=== PATIENT | female | born 1985 | race Two or more races ===

== ENCOUNTER 2017-06-03 13:47 | Emergency (ER) | payer SELFPAY ==
[~2017-06-03] VITALS: Ht 157.5 cm; Wt 77.1 kg
[2017-06-03] MEDS ORDERED: ONDANSETRON PF 4 MG/2 ML VIAL. IV ONE (14:15)
[2017-06-03] MEDS ORDERED: LIDO:MAALOX:DONNATAL 1:1:1 15 ML SINGLE DOSE SWSW ONE (14:15)
[2017-06-03] MEDS ORDERED: HYOSCYAMINE 0.125 MG TAB.RAPDIS PO PRN (14:15)
[2017-06-03] MEDS ORDERED: IV NORMAL SALINE 1000ML BAG 1,000 ML IV ONE (14:15)
[2017-06-03] MEDS ORDERED: KETOROLAC 15 MG/ML VIAL. IV ONE (14:15)
[2017-06-03 14:46] LABS: BASO # 0.1 x10^3/uL (0.0-0.2); BASO % 0 % (0-3); EOS % 8 % (0-3); HEMATOCRIT 37.4 % (36.0-47.0); HEMOGLOBIN 12.8 g/dL (12.0-15.5); LYMPH # 2.6 x10^3/uL (1.0-4.8); LYMPH % 21 % (24-48); MEAN CORPUSCULAR HEMOGLOBIN 29 pg (25-35); MEAN CORPUSCULAR HGB CONC 34 g/dL (31-37); MEAN CORPUSCULAR VOLUME 84 fL (79-100); MONO % 5 % (0-9); NEUT % 66 % (31-73); PLATELET COUNT 125 x10^3/uL (140-400); RED BLOOD COUNT 4.46 x10^6/uL (3.50-5.40); RED CELL DISTRIBUTION WIDTH 13.8 % (11.5-14.5); WHITE BLOOD COUNT 12.3 x10^3/uL (4.0-11.0)
[2017-06-03 14:48] LABS: BILIRUBIN,URINE NEGATIVE (NEG); GLUCOSE,URINE NEGATIVE (NEG); NITRITE,URINE NEGATIVE (NEG); PH,URINE 6.5; PROTEIN,URINE 30 mg/dL (NEG-TRACE)
[2017-06-03 14:49] LABS: CALCIUM 8.4 mg/dL (8.5-10.1); CREATININE 0.6 mg/dL (0.6-1.0); GFR 114.4; POTASSIUM 3.5 mmol/L (3.5-5.1)
[2017-06-03 14:55] LABS: ALBUMIN 3.5 g/dL (3.4-5.0); ALBUMIN/GLOBULIN RATIO 0.9 (1.0-1.7); TOTAL BILIRUBIN 0.7 mg/dL (0.2-1.0); TOTAL PROTEIN 7.3 g/dL (6.4-8.2)
[2017-06-03 14:57] LABS: BACTERIA,URINE MODERATE /HPF (0-FEW); SQUAMOUS EPITHELIAL CELL,UR MOD /LPF
--- NOTE | 2017-06-03 16:16 | RAD ---
EXAM: Right upper quadrant ultrasound. HISTORY: Right upper quadrant pain. COMPARISON: None. FINDINGS: Sonographic evaluation of the right upper quadrant was performed. The liver appears normal in parenchymal echotexture. There are no focal lesions. A nodule laterally in focus along the gallbladder wall near the neck measures 9 x 8 mm. Doppler images of this lesion are not included. Another smaller polyp measures 3 mm. No shadowing stones are seen. There is no sonographic Hadley sign. The common duct measures 4 mm. The visualized portions of the head of the pancreas reveal no abnormality. The right kidney measures 12.8 cm. Cortical thickness and echogenicity are preserved. There is no hydronephrosis. The visualized portions of the abdominal aorta and inferior vena cava are grossly patent and normal in caliber. IMPRESSION: 1. Multiple gallbladder polyps measure up to 9 mm. No Doppler images of these lesions are included. Additional Doppler images are recommended to assess for vascularity. If they are avascular, follow-up is recommended. If vascular, surgical consultation could be useful.
--- NOTE | 2017-06-03 16:49 | PHYS DOC ---
Past Medical History Past Medical History: No Pertinent History Past Surgical History: No Surgical History Alcohol Use: None Drug Use: None Adult General Chief Complaint Chief Complaint: NAUSEA/VOMITING/DIARRHA HPI HPI Patient is a 32 year old female who is Italian-speaking with her daughter at bedside translating presents here today complaining of nausea and vomiting since yesterday morning. Patient denies any diarrhea fevers shakes or chills. Patient reports she's had abdominal discomfort greatest in the midepigastric and right upper quadrant area. Patient denies any dysuria frequency or urgency. Patient reports her last by mouth intake was 6 PM yesterday for solids. Patient reports her last by mouth intake of liquids was 9 the morning today. Patient reports that she was able keep down for several hours but then threw it up approximately 1-2 hours later. Patient denies any cough cold Raynaud's. Patient denies any vaginal discharge. Review of systems: Constitutional: Denies fever or chills Eyes: Denies change in visual acuity, redness, or eye pain HENT: Denies nasal congestion or sore throat Respiratory: Denies cough or shortness of breath All other systems were reviewed and found to be within normal limits, except as documented in this note. Physical exam: Constitutional: Well developed, well nourished, no acute distress, non-toxic appearance. HENT: Normocephalic, atraumatic, bilateral external ears normal, nose normal. Eyes: PERRLA, EOMI, conjunctiva normal, no discharge. Neck: Normal range of motion, no tenderness, supple, no stridor. Cardiovascular: Heart rate regular rhythm, Lungs & Thorax: Bilateral breath sounds clear to auscultation Abdomen: Soft nondistended no rebound or guarding. Patient with midepigastric tenderness greater than right upper quadrant. Patient has no right lower quadrant left lower quadrant tenderness to palpation. Patient has no suprapubic discomfort. Patient not present with signs or symptoms consistent with an acute surgical abdomen. Patient has no Hadley sign or tenderness over McBurney's point. Skin: Warm, dry, no erythema, no rash. Back: Normal spinal curvature Extremities: No tenderness, no cyanosis, no clubbing, ROM intact, no edema. Neurologic: Alert and oriented X 3, normal motor function Psychologic: Affect normal, judgement normal, mood normal. Ultrasound of right upper quadrant as per radiology reveals multiple gallbladder polyps measuring up to 9 mm there is no Doppler images of these lesions included. Additional Doppler images recommended to assess for vascularity. If they are avascular, follow-up is recommended. If vascular surgical consultation could be useful. Assessment and plan: 1. 32-year-old female who presents here today complaining of abdominal pain. Patient's ER workup is unremarkable only for polyps in her gallbladder. Patient' s repeat ultrasound to assess for vascularity revealed no significant vascularity noted in the polyps in her gallbladder. He is likely benign polyps however I have discussed with the daughter and the patient the need for her to follow-up with her primary care physician to have this repeated and monitored as an outpatient. Possibly be causing her discomfort may be calling episodes of cholelithiasis for the patient. Patient will be given referrals to see a primary care physician as well as the primary surgeon further evaluate her need for surgical intervention given her discomfort and right upper quadrant. At this time the pain is gone on for approximately 24-48 hours, she has not had this discomfort in the past, her pain currently as well controlled with analgesia that was given the ED and she reports she is now pain-free. Patient be discharged home with Levsin as well as Prilosec consistent with both gastritis and biliary colic/intestinal spasms. Patient is clinically hemodynamically stable without any need for further ER/inpatient evaluation. Current Medications Current Medications Current Medications Medications (Trade) Dose Ordered Sig/[facility] Start Time Stop Time Status Last Admin Dose Admin Hyoscyamine (Anaspaz) 0.125 mg PRN Q4HRS PRN 06/03/17 14:15 06/03/17 15:00 0.125 MG Ketorolac Tromethamine (Toradol) 15 mg 1X ONCE 06/03/17 14:15 06/03/17 14:19 DC 06/03/17 15:00 15 MG Multi-Ingredient Mouthwash/Gargle (Gi Cocktail Single Dose) 15 ml 1X ONCE 06/03/17 14:15 06/03/17 14:19 DC 06/03/17 15:00 15 ML Ondansetron HCl (Zofran) 4 mg 1X ONCE 06/03/17 14:15 06/03/17 14:19 DC 06/03/17 15:00 4 MG Sodium Chloride 1,000 ml @ 1,000 mls/hr 1X ONCE 06/03/17 14:15 06/03/17 15:14 DC 06/03/17 15:00 1,000 MLS/HR Allergies Allergies Allergies Coded Allergies Type Severity Reaction Last Updated Verified No Known Drug Allergies 06/03/17 No Current Patient Data Vital Signs Vital Signs Date Time Temp Pulse Resp B/P (MAP) Pulse Ox O2 Delivery O2 Flow Rate FiO2 06/03/17 16:13 56 18 112/72 (85) 99 Room Air 06/03/17 14:05 98.3 98.3 Lab Values Laboratory Tests Test 06/03/17 14:31 06/03/17 14:32 POC Urine HCG, Qualitative Hcg negative (Negative) White Blood Count 12.3 x10^3/uL (4.0-11.0) H Red Blood Count 4.46 x10^6/uL (3.50-5.40) Hemoglobin 12.8 g/dL (12.0-15.5) Hematocrit 37.4 % (36.0-47.0) Mean Corpuscular Volume 84 fL (79-100) Mean Corpuscular Hemoglobin 29 pg (25-35) Mean Corpuscular Hemoglobin Concent 34 g/dL (31-37) Red Cell Distribution Width 13.8 % (11.5-14.5) Platelet Count 125 x10^3/uL (140-400) L Neutrophils (%) (Auto) 66 % (31-73) Lymphocytes (%) (Auto) 21 % (24-48) L Monocytes (%) (Auto) 5 % (0-9) Eosinophils (%) (Auto) 8 % (0-3) H Basophils (%) (Auto) 0 % (0-3) Neutrophils # (Auto) 8.1 x10^3uL (1.8-7.7) H Lymphocytes # (Auto) 2.6 x10^3/uL (1.0-4.8) Monocytes # (Auto) 0.6 x10^3/uL (0.0-1.1) Eosinophils # (Auto) 0.9 x10^3/uL (0.0-0.7) H Basophils # (Auto) 0.1 x10^3/uL (0.0-0.2) Urine Color Jazmine Urine Clarity Cloudy Urine pH 6.5 Urine Specific [place] 1.025 Urine Protein 30 mg/dL (NEG-TRACE) Urine Glucose (UA) Negative mg/dL (NEG) Urine Ketones (Stick) >=80 mg/dL (NEG) Urine Blood Moderate (NEG) Urine Nitrite Negative (NEG) Urine Bilirubin Negative (NEG) Urine Urobilinogen Dipstick 1.0 mg/dL (0.2 mg/dL) Urine Leukocyte Esterase Moderate (NEG) Urine RBC 3-5 /HPF (0-2) Urine WBC 5-10 /HPF (0-4) Urine Squamous Epithelial Cells Mod /LPF Urine Bacteria Moderate /HPF (0-FEW) Urine Mucus Mod /LPF Sodium Level 139 mmol/L (136-145) Potassium Level 3.5 mmol/L (3.5-5.1) Chloride Level 106 mmol/L (98-107) Carbon Dioxide Level 29 mmol/L (21-32) Anion Gap 4 (6-14) L Blood Urea Nitrogen 9 mg/dL (7-20) Creatinine 0.6 mg/dL (0.6-1.0) Estimated GFR (Cockcroft-Gault) 114.4 BUN/Creatinine Ratio 15 (6-20) Glucose Level 90 mg/dL (70-99) Calcium Level 8.4 mg/dL (8.5-10.1) L Total Bilirubin 0.7 mg/dL (0.2-1.0) Aspartate Amino Transferase (AST) 13 U/L (15-37) L Alanine Aminotransferase (ALT) 18 U/L (14-59) Alkaline Phosphatase 62 U/L (46-116) Total Protein 7.3 g/dL (6.4-8.2) Albumin 3.5 g/dL (3.4-5.0) Albumin/Globulin Ratio 0.9 (1.0-1.7) L Lipase 54 U/L (73-393) L Laboratory Tests 06/03/17 14:32 Laboratory Tests 06/03/17 14:32 EKG EKG [] Radiology/Procedures Radiology/Procedures [] Course & Med Decision Making Course & Med Decision Making Pertinent Labs and Imaging studies reviewed. (See chart for details) [] Dragon Disclaimer Dragon Disclaimer This electronic medical record was generated, in whole or in part, using a voice recognition dictation system. Departure Departure Impression: Primary Impression: Gallbladder polyp Additional Impressions: Biliary colic Abdominal pain Disposition: HOME, SELF-CARE Condition: IMPROVED Referrals: NO PCP (PCP) Patient Instructions: Abdominal Pain (Nonspecific), Biliary Colic Scripts Omeprazole Magnesium (PRILOSEC OTC) 20 Mg Tablet.dr 1 TAB PO DAILY, #30 TAB 3 Refills Prov: EDMUNDO LAN MD 06/03/17 Ondansetron (ZOFRAN ODT) 4 Mg Tab.rapdis 1 TAB SL Q6HRS Y for NAUSEA, #12 TAB Prov: EDMUNDO LAN MD 06/03/17 Hyoscyamine Sulfate (LEVSIN-SL) 0.125 Mg Tab.subl 0.125 MG SL Q6-8HRS Y for abdominal cramps, #10 TAB Prov: EDMUNDO LAN MD 06/03/17 Ibuprofen (IBUPROFEN) 600 Mg Tablet 600 MG PO PRN Q6HRS Y for PAIN, #20 TAB Prov: EDMUNDO LAN MD 06/03/17 Problem Qualifiers EDMUNDO LAN MD Jun 03, 2017 16:49
--- NOTE | 2017-06-03 17:37 | RAD ---
EXAM: Abdomen sonogram limited. HISTORY: Gallbladder polyp. TECHNIQUE: Grayscale and color Doppler sonographic images of the abdomen with spectral waveform analysis was performed. COMPARISON: Sonogram performed on the same date. FINDINGS: There is no identifiable blood flow within gallbladder polyps demonstrated on a sonogram performed on the same date. The largest of these measures 6 mm on the submitted images. IMPRESSION: No convincing blood flow within gallbladder polyps. The remainder of the abdomen is further characterized on the sonogram performed on the same date. Electronically signed by: Misty Sharpe MD (06/03/2017 5:33 PM) [id number]
[2017-06-03] MEDS ORDERED: HYOS0.1265 SL (17:52)
[2017-06-03] MEDS ORDERED: OMEP20TA63 PO (17:52)
[2017-06-03] MEDS ORDERED: IBUP-1007 PO (17:52)
[2017-06-03] MEDS ORDERED: ONDA4TAB10 SL (17:52)
[2017-06-03 18:01] VITALS: BP 107/71
== END 2017-06-03 18:08 | disposition home or self-care (01) ==
LOC: ER 13:47
DX: K82.4 Cholesterolosis of gallbladder (principal); K80.50 Calculus of bile duct without cholangitis or cholecystitis without obstruction
CPT/HCPCS: 36415; 76705; 80053; 81001; 81025; 83690; 85025; 87086; 96361; 96374; 96375; 99285; J1885; J2405; J7030